=== PATIENT | male | born 1990 | race Hispanic/Latino ===

== ENCOUNTER 2017-03-25 04:42 | Emergency (ER) | payer OTHER ==
[2017-03-25 04:59] VITALS: RESP 18; TEMP 97.9; O2SAT 99
--- NOTE | 2017-03-25 05:33 | ED PDOC ---
HPI: General Adult Time Seen by Provider: 03/25/17 04:54 Chief Complaint (Nursing): Back Pain Chief Complaint (Provider): abdominal pain, back pain History Per: Patient Additional Complaint(s): 26 year old with no past medical history presents to ED with epigastric pain that radiates to his back for the past 4 days. Patient states that he cannot sleep at night due to pain. He has been taking tums and pepcid and has not noticed any improvement to the pain. No associated chest pain, SOB or BURNS. Patient denies N/V/D/C. He rates current pain as 6/10. Past Medical History Reviewed: Historical Data, Nursing Documentation, Vital Signs Vital Signs: Last Vital Signs Temp 97.9 F 03/25/17 04:56 Pulse 57 L 03/25/17 04:56 Resp 18 03/25/17 04:56 BP 128/66 03/25/17 04:56 Pulse Ox 99 03/25/17 04:56 - Medical History PMH: No Chronic Diseases - Surgical History Surgical History: No Surg Hx - Family History Family History: States: No Known Family Hx - Living Arrangements Living Arrangements: With Family - Social History Current smoker - smoking cessation education provided: No Alcohol: Social Drugs: Denies - Allergies Allergies/Adverse Reactions: Allergies Allergy/AdvReac Type Severity Reaction Status Date / Time No Known Allergies Allergy Verified 03/25/17 05:00 Review of Systems ROS Statement: Except As Marked, All Systems Reviewed And Found Negative Constitutional: Negative for: Fever, Chills Cardiovascular: Negative for: Chest Pain Respiratory: Negative for: Cough Gastrointestinal: Positive for: Abdominal Pain. Negative for: Nausea, Vomiting , Diarrhea, Constipation Genitourinary Male: Negative for: Dysuria, Frequency, Incontinence, Hematuria Musculoskeletal: Positive for: Back Pain Neurological: Negative for: Dizziness Physical Exam - Reviewed Nursing Documentation Reviewed: Yes Vital Signs Reviewed: Yes - Physical Exam Appears: Positive for: Well, Non-toxic, No Acute Distress Skin: Negative for: Rash Eye Exam: Positive for: Normal appearance, EOMI, PERRL Cardiovascular/Chest: Positive for: Regular Rate, Rhythm Respiratory: Positive for: Normal Breath Sounds Gastrointestinal/Abdominal: Positive for: Tenderness (epigastric, no rebound or guarding) Back: Negative for: L CVA Tenderness, R CVA Tenderness, Vertebral Tenderness Extremity: Positive for: Normal ROM. Negative for: Pedal Edema Neurologic/Psych: Positive for: Alert, Oriented - Laboratory Results Urine dip results: Negative for: Leukocyte Esterase, Blood, Nitrate, Ketones, Glucose, Bilirubin, Protein - ECG O2 Sat by Pulse Oximetry: 99 Pulse Ox Interpretation: Normal Medical Decision Making Medical Decision Makin26 year old with abdominal and back pain Plan: UA and culture CBC CMP Lipase IVF Abdominal US Patient declined pain meds Disposition - Clinical Impression Clinical Impression: Back pain, Abdominal pain - Patient ED Disposition Is Patient to be Admitted: Transfer of Care - Disposition Disposition: Transfer of Care Disposition Time: 06:00 Condition: STABLE Patient Signed Over To: Fritz Zee Handoff Comments: Signed out pending diagnostic testing results and final disposition
[2017-03-25] MEDS ORDERED: Sodium Chloride 0.9% 1,000 ML IV STA (05:38)
[2017-03-25 06:04] LABS: BASO # 0.1 K/uL (0.0-0.2); EOS # 0.3 K/uL (0.0-0.7); EOS % 4.3 % (0.0-4.0); HEMATOCRIT 43.8 % (35.0-51.0); LYMPH % 30.4 % (20.0-40.0); MEAN CELL VOLUME 86.8 fl (80.0-94.0); MEAN CORPUSCULAR HEMOGLOBIN 29.7 pg (27.0-31.0); MEAN CORPUSCULAR HGB CONC 34.2 g/dL (33.0-37.0); MEAN PLATELET VOLUME 7.8 fl (7.2-11.7); MONO # 0.6 K/uL (0.0-0.8); MONO % 8.7 % (0.0-10.0); NEUT # 3.7 K/uL (1.8-7.0); NEUT % 55.6 % (50.0-75.0); RED CELL DISTRIBUTION WIDTH 12.9 % (11.5-14.5); WHITE BLOOD COUNT 6.6 K/uL (4.8-10.8)
[2017-03-25 06:10] LABS: RBC URINE 3 /hpf (0-3); URINE BILIRUBIN NEGATIVE (NEGATIVE); URINE BLOOD NEGATIVE (NEGATIVE); URINE COLOR YELLOW (YELLOW); URINE GLUCOSE (UA) NEG (Normal); URINE KETONE NEGATIVE (NEGATIVE); URINE LEUKOCYTE ESTERASE NEG Leu/uL (Negative); URINE PROTEIN NEGATIVE (NEGATIVE); URINE UROBILINOGEN 0.2-1.0 mg/dL (0.2-1.0); WBC URINE < 1 /hpf (0-5)
[2017-03-25 06:15] LABS: ALB/GLOB RATIO 1.8 (1.0-2.1); ALKALINE PHOSPHATASE 48 U/L (38-126); ALT/SGPT 31 U/L (21-72); AST/SGOT 33 U/L (17-59); BILIRUBIN,TOTAL 0.9 mg/dl (0.2-1.3); BLOOD UREA NITROGEN 19 mg/dl (9-20); CALCIUM 9.3 mg/dL (8.4-10.2); CARBON DIOXIDE 27 mmol/L (22-30); CHLORIDE 104 mmol/L (98-107); GFR AFRICAN-AMERICAN > 60; GLUCOSE,RANDOM 100 mg/dL (75-110); LIPASE 49 U/L (23-300); POTASSIUM 4.2 MMOL/L (3.6-5.0); SODIUM 143 mmol/l (132-148); TOTAL PROTEIN 7.3 G/DL (6.3-8.2)
--- NOTE | 2017-03-25 06:21 | ED PDOC ---
- Laboratory Results Result Diagrams: 03/25/17 06:01 03/25/17 06:01 - ECG O2 Sat by Pulse Oximetry: 99 (RA) Pulse Ox Interpretation: Normal Medical Decision Making Medical Decision Makin:00 Patient signed out to Provider by Luna Ortiz pending labs and ultrasound. Patient signed out to Dr. Crawford pending labs and ultrasound. Scribe Attestation: Documented by Angelita Escalante, acting as a scribe for Fritz Zee MD. Provider Scribe Attestation: All medical record entries made by the Scribe were at my direction and personally dictated by me. I have reviewed the chart and agree that the record accurately reflects my personal performance of the history, physical exam, medical decision making, and the department course for this patient. I have also personally directed, reviewed, and agree with the discharge instructions and disposition. Disposition - Clinical Impression Clinical Impression: Back pain, Abdominal pain - POA Present On Arrival: None - Disposition Disposition: Routine/Home Disposition Time: 07:00 Condition: STABLE Patient Signed Over To: Reji Crawford (7:00)
[2017-03-25 07:50] VITALS: PULSE 60
--- NOTE | 2017-03-25 09:17 | US ---
HISTORY: epigastric pain radiating to back COMPARISON: None available. TECHNIQUE: Sonographic evaluation of the abdomen. FINDINGS: LIVER: Measures 17.3 cm in sagittal dimension and appears within normal limits of size, shape, and echotexture. No focal hepatic mass identified. The main portal vein appears patent with normal directional flow. No intrahepatic bile duct dilatation. GALLBLADDER: No gallstones. Mild pericholecystic fluid. No gallbladder wall thickening. Negative sonographic Fleming's sign as assessed by the service parts coordinator. COMMON BILE DUCT: Measures 3 mm. No stones. No dilatation. PANCREAS: Not well visualized. RIGHT KIDNEY: Measures 12.0 x 5.1 x 3.0 cm. No obstructing calculus or hydronephrosis identified. LEFT KIDNEY: Measures 12.9 x 5.2 x 3.4 cm. No obstructing calculus or hydronephrosis identified. SPLEEN: Measures approximately 12.9 x 12.3 x 4.1 cm. AORTA: Limited views appear unremarkable. IVC: Limited views appear unremarkable. OTHER FINDINGS: None. IMPRESSION: Trace pericholecystic fluid. Otherwise unremarkable study as above.
--- NOTE | 2017-03-25 09:49 | ED PDOC ---
- Laboratory Results Result Diagrams: 03/25/17 06:01 03/25/17 06:01 - ECG O2 Sat by Pulse Oximetry: 99 - Progress Re-evaluation Time: 09:48 Condition: Improved Disposition - Clinical Impression Clinical Impression: Back pain, Abdominal pain, Gastritis - POA Present On Arrival: None - Disposition Referrals: Harjeet Atwood MD [Staff Provider] - Disposition: Routine/Home Disposition Time: 09:48 Condition: STABLE Prescriptions: Famotidine [Pepcid] 20 mg PO Q12 #20 tab Instructions: Gastritis (ED)
[2017-03-25 10:14] VITALS: BP 108/59
== END 2017-03-25 10:15 | disposition home or self-care (01) ==
LOC: H.ER 04:42
DX: M54.9 Dorsalgia, unspecified (principal); R10.13 Epigastric pain; K29.70 Gastritis, unspecified, without bleeding